=== PATIENT | female | born 1935 | race Caucasian/White ===

== ENCOUNTER 2017-07-04 11:38 | Inpatient (IN) | payer OTHER ==
[~2017-07-04] VITALS: Ht 170.2 cm; Wt 57.6 kg
[~2017-07-04 11:38] MED LIST: ACET325T14 PO; CALC1TAB59 PO; FOLI-17 PO; HYDR-3237 PO; LEVO100T5 PO; LOVA10TA PO
[2017-07-04] MEDS ORDERED: SODIUM CHLORIDE 0.9% 1,000 ML IV ONE (11:58)
[2017-07-04] MEDS ORDERED: SODIUM CHLORIDE FLUSH 10ML SYR IVF ONE (12:00)
[2017-07-04] MEDS ORDERED: SODIUM CHLORIDE 0.9% 1,000ML IVBOLUS ONE (12:00)
[2017-07-04 12:57] LABS: MEAN CORPUSCULAR HEMOGLOBIN 28.5 pg (27.0-34.8); MEAN CORPUSCULAR VOLUME 86.2 fL (80-100); PLATELET COUNT 266 x10^3/uL (130-400); RED BLOOD COUNT 4.32 x10^6/uL (3.82-5.3); RED CELL DISTRIBUTION WIDTH 13.6 % (9.6-15.2)
[2017-07-04 13:06] LABS: ALANINE AMINOTRANSFERASE 21 U/L (12-78); ALBUMIN 1.7 g/dL (3.4-5.0); ANION GAP 7 mmol/L (5-15); CALCIUM 7.9 mg/dL (8.5-10.1); CHLORIDE 109 mmol/L (98-107); CREATININE 1.27 mg/dL (0.55-1.02)
[2017-07-04 13:13] LABS: TROPONIN I < 0.015 ng/mL (0.000-0.045)
[2017-07-04 13:17] LABS: ALKALINE PHOSPHATASE 182 U/L (45-117); BILIRUBIN,TOTAL 0.3 mg/dL (0.2-1.0); TOTAL PROTEIN 5.9 g/dL (6.4-8.2)
[2017-07-04] MEDS ORDERED: CEFTRIAXONE PMX 1GM/50ML 50 ML ONE (13:27)
[2017-07-04] MEDS ORDERED: CEFTRIAXONE PMX 1GM/50ML 50 ML IVPB ONE (13:30)
[2017-07-04] MEDS ORDERED: LEVO88TA4 PO (13:33)
[2017-07-04] MEDS ORDERED: ALPR0.5T3 PO (13:34)
[2017-07-04 13:42] LABS: MD YES
[2017-07-04 13:44] LABS: BANDS%(MANUAL) 16 % (0-7); LYMPHS% (MANUAL) 1 % (22-44); MONOS% (MANUAL) 2 % (2-9); SEGS% (MANUAL) 81 % (42-75)
[2017-07-04 13:46] LABS: <PLATELET ESTIMATE> ADEQUATE; <PLT MORPHOLOGY> NORMAL PLT MORPH; TOXIC GRAN 1+
[2017-07-04 13:49] LABS: MICROSCOPIC INDICATED
[2017-07-04 14:43] LABS: CULTURE INDICATED? YES
[2017-07-04] MEDS ORDERED: HYDROcodone/APAP 5/325 TABLET ONE (15:12)
[2017-07-04] MEDS ORDERED: HYDROcodone/APAP 5/325 TABLET PO ONE (15:30)
[2017-07-04 17:09] VITALS: BP 111/67
[2017-07-04] MEDS ORDERED: SODIUM CHLORIDE 0.9% 1,000 ML IV SCH (17:55)
[2017-07-04] MEDS ORDERED: PHARMACY MAY ADJ FOR RENAL FX MC PRN (18:00)
[2017-07-04] MEDS ORDERED: GUAIFENESIN/DM 200-20MG, 10ML UDC PO PRN (18:00)
[2017-07-04] MEDS ORDERED: BISACODYL 10 MG SUPP PR PRN (18:00)
[2017-07-04] MEDS ORDERED: ACETAMINOPHEN 325 MG TABLET PO PRN (18:00)
[2017-07-04] MEDS: DOXYCYCLINE 100 MG in DEXTROSE 5% 250 ML IV SCH (19:16)
[2017-07-04 19:52] VITALS: BP 122/74
[2017-07-04] MEDS: LOVASTATIN 10 MG TABLET PO SCH (20:25)
[2017-07-04] MEDS: HEPARIN 5,000 UNITS/ML, 1ML INJ SCH (20:25)
[2017-07-05 01:07] VITALS: BP 122/66
[2017-07-05] MEDS: NS + 20MEQ KCL 1,000 ML IV SCH ×2 (01:39→15:21)
[2017-07-05 05:11] LABS: CHLORIDE 112 mmol/L (98-107)
[2017-07-05 05:17] LABS: MEAN CORPUSCULAR HGB CONC 32.6 g/dL (32.4-35.8); MEAN CORPUSCULAR VOLUME 85.9 fL (80-100); MEAN PLATELET VOLUME 7.2 fL (7.4-10.4); PLATELET COUNT 222 x10^3/uL (130-400); RED BLOOD COUNT 3.87 x10^6/uL (3.82-5.3); RED CELL DISTRIBUTION WIDTH 13.9 % (9.6-15.2)
[2017-07-05 05:26] LABS: ALANINE AMINOTRANSFERASE 16 U/L (12-78); ALBUMIN 1.4 g/dL (3.4-5.0); ALKALINE PHOSPHATASE 148 U/L (45-117); ANION GAP 6 mmol/L (5-15); BILIRUBIN,TOTAL 0.3 mg/dL (0.2-1.0); CALCIUM 7.5 mg/dL (8.5-10.1); CREATININE 0.97 mg/dL (0.55-1.02); TOTAL PROTEIN 5.1 g/dL (6.4-8.2)
[2017-07-05] MEDS: LEVOTHYROXINE 88 MCG TABLET PO SCH (05:38)
[2017-07-05 05:57] LABS: MD YES
[2017-07-05 06:02] LABS: BAND#(MANUAL) 2.52 x10^3/uL; BANDS%(MANUAL) 12 % (0-7); LYMPH#(MANUAL) 1.89 x10^3/uL (1-3.4); LYMPHS% (MANUAL) 9 % (22-44); MONOS#(MANUAL) 0.63 x10^3/uL (0.3-2.7); MONOS% (MANUAL) 3 % (2-9); MYELOCYTES# (MANUAL) 0.21 x10^3/uL (0-0); MYELOCYTES% (MANUAL) 1 % (0-0); SEG#(MANUAL) 15.75 x10^3/uL (1.8-6.8); SEGS% (MANUAL) 75 % (42-75)
[2017-07-05 06:05] LABS: <PLATELET ESTIMATE> ADEQUATE; <PLT MORPHOLOGY> NORMAL PLT MORPH; <RBC MORPHOLOGY> NORMAL; TOXIC GRAN 1+
[2017-07-05] MEDS: DOXYCYCLINE 100 MG in DEXTROSE 5% 250 ML IV SCH (06:34)
[2017-07-05 06:45] VITALS: BP 134/78
[2017-07-05] MEDS: HEPARIN 5,000 UNITS/ML, 1ML INJ SCH ×2 (09:57→20:44)
[2017-07-05] MEDS ORDERED: MORPHINE SULFATE 4 MG/ML, 1ML IVPush PRN (13:30)
[2017-07-05] MEDS: HYDROcodone/APAP 5/325 TABLET PO PRN ×2 (14:03→19:10)
[2017-07-05] MEDS: CEFTRIAXONE PMX 1GM/50ML 50 ML IVPB SCH (14:04)
[2017-07-05 15:10] VITALS: BP 137/77
[2017-07-05] MEDS ORDERED: POTASSIUM CHLORIDE 20 MEQ in SODIUM CHLORIDE 0.9% 1,000 ML IV SCH (17:55)
[2017-07-05 19:03] VITALS: BP 126/75
[2017-07-05] MEDS: LOVASTATIN 10 MG TABLET PO SCH (20:44)
[2017-07-05] MEDS: DOXYCYCLINE 100MG TABLET PO SCH (20:44)
[2017-07-06 00:39] VITALS: BP 121/69
[2017-07-06] MEDS: NS + 20MEQ KCL 1,000 ML IV SCH (01:18)
[2017-07-06] MEDS: HYDROcodone/APAP 5/325 TABLET PO PRN ×4 (04:20→21:39)
[2017-07-06 05:40] LABS: MEAN CORPUSCULAR HEMOGLOBIN 28.3 pg (27.0-34.8); MEAN CORPUSCULAR HGB CONC 32.9 g/dL (32.4-35.8); MEAN PLATELET VOLUME 7.6 fL (7.4-10.4); PLATELET COUNT 233 x10^3/uL (130-400); RED BLOOD COUNT 3.76 x10^6/uL (3.82-5.3); RED CELL DISTRIBUTION WIDTH 14.3 % (9.6-15.2)
[2017-07-06 05:41] LABS: CHLORIDE 114 mmol/L (98-107)
[2017-07-06 05:46] LABS: ANION GAP 6 mmol/L (5-15); CALCIUM 7.5 mg/dL (8.5-10.1); CREATININE 0.93 mg/dL (0.55-1.02)
[2017-07-06 05:59] LABS: MD YES
[2017-07-06 06:00] LABS: BAND#(MANUAL) 0.74 x10^3/uL; BANDS%(MANUAL) 4 % (0-7); LYMPH#(MANUAL) 0.93 x10^3/uL (1-3.4); LYMPHS% (MANUAL) 5 % (22-44); MONOS#(MANUAL) 0.19 x10^3/uL (0.3-2.7); MONOS% (MANUAL) 1 % (2-9); SEG#(MANUAL) 16.74 x10^3/uL (1.8-6.8); SEGS% (MANUAL) 90 % (42-75)
[2017-07-06 06:01] LABS: <PLATELET ESTIMATE> ADEQUATE; <PLT MORPHOLOGY> NORMAL PLT MORPH; <RBC MORPHOLOGY> NORMAL; TOXIC GRAN 1+
[2017-07-06] MEDS: LEVOTHYROXINE 88 MCG TABLET PO SCH (06:10)
[2017-07-06 07:11] VITALS: BP 132/77
[2017-07-06] MEDS ORDERED: VANCOMYCIN PER PHARMACY MC PRN (08:00)
[2017-07-06] MEDS ORDERED: PHARMACOKINETIC MONITORING MC PRN (08:00)
[2017-07-06] MEDS: SODIUM CHLORIDE 0.45% 1,000 ML IV SCH ×2 (08:06→20:28)
[2017-07-06] MEDS: DOXYCYCLINE 100MG TABLET PO SCH ×2 (08:06→20:28)
[2017-07-06] MEDS: SENNA/DOCUSATE TABLET PO PRN (08:06)
[2017-07-06] MEDS: HEPARIN 5,000 UNITS/ML, 1ML INJ SCH ×2 (08:06→20:29)
[2017-07-06 08:30] LABS: MEAN CORPUSCULAR HEMOGLOBIN 27.7 pg (27.0-34.8); MEAN CORPUSCULAR HGB CONC 32.1 g/dL (32.4-35.8); MEAN CORPUSCULAR VOLUME 86.3 fL (80-100); MEAN PLATELET VOLUME 7.4 fL (7.4-10.4); PLATELET COUNT 248 x10^3/uL (130-400); RED BLOOD COUNT 4.07 x10^6/uL (3.82-5.3); RED CELL DISTRIBUTION WIDTH 13.9 % (9.6-15.2)
[2017-07-06 08:51] LABS: MD YES
[2017-07-06 08:55] LABS: EOS#(MANUAL) 0.18 x10^3/uL (0.0-0.4); EOS% (MANUAL) 1 % (1-7); LYMPH#(MANUAL) 1.06 x10^3/uL (1-3.4); LYMPHS% (MANUAL) 6 % (22-44); SEG#(MANUAL) 16.46 x10^3/uL (1.8-6.8); SEGS% (MANUAL) 93 % (42-75)
[2017-07-06 08:59] LABS: POLYCHROMASIA 1+; TOXIC GRAN 1+
[2017-07-06 09:00] LABS: <PLATELET ESTIMATE> ADEQUATE; <PLT MORPHOLOGY> NORMAL PLT MORPH
[2017-07-06] MEDS: VANCOMYCIN PMX 1GM/200ML 200 ML IV SCH (09:19)
[2017-07-06] MEDS: ONDANSETRON 2MG/ML, 2ML IVPB PRN (10:54)
[2017-07-06 12:50] VITALS: BP 145/82
[2017-07-06] MEDS: CEFTRIAXONE PMX 1GM/50ML 50 ML IVPB SCH (13:19)
[2017-07-06 18:46] VITALS: BP 144/76
[2017-07-06] MEDS: LOVASTATIN 10 MG TABLET PO SCH (20:28)
[2017-07-07 01:00] VITALS: BP 151/71
[2017-07-07 04:48] LABS: BASOPHILS # (AUTO) 0.02 x10^3/uL (0-0.1); BASOPHILS % (AUTO) 0 % (0-1); EOSINOPHILS # (AUTO) 0.19 x10^3/uL (0-0.4); EOSINOPHILS % (AUTO) 1 % (1-7); LYMPHOCYTES # (AUTO) 1.07 x10^3/uL (1-3.4); LYMPHOCYTES % (AUTO) 8 % (22-44); MD NO; MEAN CORPUSCULAR HEMOGLOBIN 28.4 pg (27.0-34.8); MEAN CORPUSCULAR HGB CONC 32.8 g/dL (32.4-35.8); MEAN CORPUSCULAR VOLUME 86.4 fL (80-100); MEAN PLATELET VOLUME 7.3 fL (7.4-10.4); MONOCYTES # (AUTO) 0.53 x10^3/uL (0.2-0.8); MONOCYTES % (AUTO) 4 % (2-9); NEUTROPHILS # (AUTO) 12.38 x10^3/uL (1.8-6.8); NEUTROPHILS % (AUTO) 87 % (42-75); PLATELET COUNT 265 x10^3/uL (130-400); RED BLOOD COUNT 3.79 x10^6/uL (3.82-5.3); RED CELL DISTRIBUTION WIDTH 13.7 % (9.6-15.2)
[2017-07-07 04:59] LABS: ALBUMIN 1.3 g/dL (3.4-5.0); ANION GAP 4 mmol/L (5-15); CALCIUM 7.5 mg/dL (8.5-10.1); CHLORIDE 111 mmol/L (98-107); CREATININE 0.91 mg/dL (0.55-1.02)
[2017-07-07] MEDS: LEVOTHYROXINE 88 MCG TABLET PO SCH (06:17)
[2017-07-07] MEDS: SODIUM CHLORIDE 0.45% 1,000 ML IV SCH (06:17)
[2017-07-07 06:40] VITALS: BP 155/81
[2017-07-07] MEDS ORDERED: MAGNESIUM SULFATE PMX 4GM/100M 100 ML IV ONE (09:00)
[2017-07-07] MEDS: VANCOMYCIN PMX 1GM/200ML 200 ML IV SCH (09:24)
[2017-07-07] MEDS: HEPARIN 5,000 UNITS/ML, 1ML INJ SCH (09:24)
[2017-07-07] MEDS: DOXYCYCLINE 100MG TABLET PO SCH ×2 (09:24→21:01)
[2017-07-07] MEDS: HYDROcodone/APAP 5/325 TABLET PO PRN ×2 (09:24→21:01)
[2017-07-07] MEDS: ONDANSETRON 2MG/ML, 2ML IVPB PRN (10:30)
[2017-07-07 12:10] VITALS: BP 147/80
[2017-07-07] MEDS: ENOXAPARIN 40 MG/0.4 ML SQ SCH (14:04)
[2017-07-07] MEDS: CEFTRIAXONE PMX 1GM/50ML 50 ML IVPB SCH (15:20)
[2017-07-07] MEDS: SENNA/DOCUSATE TABLET PO PRN (15:20)
[2017-07-07 18:52] VITALS: BP 150/73
[2017-07-07] MEDS: LOVASTATIN 10 MG TABLET PO SCH (21:01)
[2017-07-08 01:08] VITALS: BP 145/73
[2017-07-08] MEDS: LEVOTHYROXINE 88 MCG TABLET PO SCH (06:16)
[2017-07-08 06:48] VITALS: BP 139/71
[2017-07-08] MEDS: DOXYCYCLINE 100MG TABLET PO SCH ×2 (09:06→21:07)
[2017-07-08] MEDS: HYDROcodone/APAP 5/325 TABLET PO PRN ×2 (09:08→21:08)
[2017-07-08 09:14] LABS: ALBUMIN 1.4 g/dL (3.4-5.0); ANION GAP 5 mmol/L (5-15); CALCIUM 7.5 mg/dL (8.5-10.1); CHLORIDE 109 mmol/L (98-107); CREATININE 0.88 mg/dL (0.55-1.02)
[2017-07-08 09:20] LABS: BASOPHILS % (AUTO) 0 % (0-1); EOSINOPHILS # (AUTO) 0.16 x10^3/uL (0-0.4); EOSINOPHILS % (AUTO) 2 % (1-7); LYMPHOCYTES # (AUTO) 1.04 x10^3/uL (1-3.4); LYMPHOCYTES % (AUTO) 10 % (22-44); MD SCAN; MEAN CORPUSCULAR HEMOGLOBIN 27.5 pg (27.0-34.8); MEAN CORPUSCULAR HGB CONC 32.1 g/dL (32.4-35.8); MEAN CORPUSCULAR VOLUME 85.7 fL (80-100); MEAN PLATELET VOLUME 6.9 fL (7.4-10.4); MONOCYTES # (AUTO) 0.36 x10^3/uL (0.2-0.8); MONOCYTES % (AUTO) 4 % (2-9); NEUTROPHILS # (AUTO) 8.83 x10^3/uL (1.8-6.8); NEUTROPHILS % (AUTO) 85 % (42-75); PLATELET COUNT 339 x10^3/uL (130-400); RED BLOOD COUNT 3.95 x10^6/uL (3.82-5.3); RED CELL DISTRIBUTION WIDTH 13.5 % (9.6-15.2)
[2017-07-08 12:03] VITALS: BP 130/70
[2017-07-08] MEDS: CEFTRIAXONE PMX 1GM/50ML 50 ML IVPB SCH (13:39)
[2017-07-08] MEDS: ENOXAPARIN 40 MG/0.4 ML SQ SCH (13:39)
[2017-07-08 19:40] VITALS: BP 149/83
[2017-07-08] MEDS: SENNA/DOCUSATE TABLET PO PRN (21:07)
[2017-07-08] MEDS: TEMAZEPAM 15 MG CAPSULE PO PRN (21:08)
[2017-07-08] MEDS: LOVASTATIN 10 MG TABLET PO SCH (21:08)
[2017-07-09 01:06] VITALS: BP 136/78
[2017-07-09] MEDS: LEVOTHYROXINE 88 MCG TABLET PO SCH (06:10)
[2017-07-09] MEDS: HYDROcodone/APAP 5/325 TABLET PO PRN (06:10)
[2017-07-09 06:35] LABS: BASOPHILS # (AUTO) 0.03 x10^3/uL (0-0.1); BASOPHILS % (AUTO) 0 % (0-1); EOSINOPHILS # (AUTO) 0.12 x10^3/uL (0-0.4); EOSINOPHILS % (AUTO) 1 % (1-7); LYMPHOCYTES # (AUTO) 1.15 x10^3/uL (1-3.4); LYMPHOCYTES % (AUTO) 10 % (22-44); MD NO; MEAN CORPUSCULAR HEMOGLOBIN 27.4 pg (27.0-34.8); MEAN CORPUSCULAR HGB CONC 32.3 g/dL (32.4-35.8); MEAN CORPUSCULAR VOLUME 84.9 fL (80-100); MEAN PLATELET VOLUME 7.1 fL (7.4-10.4); MONOCYTES # (AUTO) 0.53 x10^3/uL (0.2-0.8); MONOCYTES % (AUTO) 5 % (2-9); NEUTROPHILS % (AUTO) 84 % (42-75); PLATELET COUNT 390 x10^3/uL (130-400); RED BLOOD COUNT 3.84 x10^6/uL (3.82-5.3); RED CELL DISTRIBUTION WIDTH 13.2 % (9.6-15.2)
[2017-07-09 06:47] LABS: ALBUMIN 1.4 g/dL (3.4-5.0); ANION GAP 5 mmol/L (5-15); CALCIUM 7.5 mg/dL (8.5-10.1); CHLORIDE 106 mmol/L (98-107); CREATININE 0.75 mg/dL (0.55-1.02)
[2017-07-09 07:26] VITALS: BP 135/80
[2017-07-09] MEDS: DOXYCYCLINE 100MG TABLET PO SCH ×2 (10:10→20:00)
[2017-07-09] MEDS: CEFTRIAXONE PMX 1GM/50ML 50 ML IVPB SCH (13:28)
[2017-07-09] MEDS: ENOXAPARIN 40 MG/0.4 ML SQ SCH (13:28)
[2017-07-09] MEDS ORDERED: POTASSIUM CHLORIDE 20 MEQ TAB.ER.PRT PO ONE (13:30)
[2017-07-09] MEDS ORDERED: FUROSEMIDE 20 MG/2 ML IV ONE (13:30)
[2017-07-09 13:55] VITALS: BP 146/81
[2017-07-09 19:12] VITALS: BP 124/72
[2017-07-09] MEDS ORDERED: HYDROcodone/APAP 5/325 TABLET PO ONE (19:30)
[2017-07-09] MEDS: ONDANSETRON 2MG/ML, 2ML IVPB PRN (19:39)
[2017-07-09] MEDS: TEMAZEPAM 15 MG CAPSULE PO PRN (19:39)
[2017-07-09] MEDS: LOVASTATIN 10 MG TABLET PO SCH (20:00)
[2017-07-10 01:06] VITALS: BP 116/66
[2017-07-10] MEDS: LEVOTHYROXINE 88 MCG TABLET PO SCH (05:51)
[2017-07-10] MEDS ORDERED: CEFT1FRO2 IV (08:24)
[2017-07-10] MEDS: DOXYCYCLINE 100MG TABLET PO SCH (08:40)
[2017-07-10 09:31] VITALS: BP 99/63
[2017-07-10] MEDS ORDERED: PNEUMOCOCCAL VACC.PER PHARMACY IM ONE ×2 (12:00→15:00)
[2017-07-10] MEDS: ENOXAPARIN 40 MG/0.4 ML SQ SCH (13:55)
[2017-07-10] MEDS: CEFTRIAXONE PMX 1GM/50ML 50 ML IVPB SCH (13:55)
== END 2017-07-10 15:00 | DRG 871 ==
LOC: ED 11:51 → EDIP 13:56 → 3NW 16:30
PROVIDERS: ADMIT Internal Medicine; ATTEND Internal Medicine
PROC: 02HV33Z Insertion of Infusion Device into Superior Vena Cava, Percutaneous Approach (ICD-10-PCS; principal; 2017-07-08)
PROC: B548ZZA Ultrasonography of Superior Vena Cava, Guidance (ICD-10-PCS; 2017-07-08)
PROC: B5181ZA Fluoroscopy of Superior Vena Cava using Low Osmolar Contrast, Guidance (ICD-10-PCS; 2017-07-08)
DX: A40.3 Sepsis due to Streptococcus pneumoniae (principal); N17.0 Acute kidney failure with tubular necrosis; E43 Unspecified severe protein-calorie malnutrition; J15.9 Unspecified bacterial pneumonia; D64.9 Anemia, unspecified; E86.0 Dehydration; S32.599A Other specified fracture of unspecified pubis, initial encounter for closed fracture; J98.11 Atelectasis; Z68.1 Body mass index [BMI] 19.9 or less, adult; N30.90 Cystitis, unspecified without hematuria; W01.0XXA Fall on same level from slipping, tripping and stumbling without subsequent striking against object, initial encounter; E78.00 Pure hypercholesterolemia, unspecified; E83.42 Hypomagnesemia; M43.16 Spondylolisthesis, lumbar region; M51.36 Other intervertebral disc degeneration, lumbar region; M81.0 Age-related osteoporosis without current pathological fracture; R29.6 Repeated falls; Y93.89 Activity, other specified; Y92.89 Other specified places as the place of occurrence of the external cause; Y99.8 Other external cause status; Z98.82 Breast implant status; Z90.12 Acquired absence of left breast and nipple; Z90.49 Acquired absence of other specified parts of digestive tract; Z87.891 Personal history of nicotine dependence; M47.817 Spondylosis without myelopathy or radiculopathy, lumbosacral region; G89.29 Other chronic pain; E89.0 Postprocedural hypothyroidism; Z23 Encounter for immunization
CPT/HCPCS: 36415; 36569; 71045; 72110; 72220; 76937; 77001; 80048; 80053; 81001; 82040; 83605; 83735; 84100; 84145; 84439; 84443; 84484; 85025; 87040; 87077; 87086; 87181; 93005; 93306; 96361; 96365; J0696; J1644; J1650; J2405; J3370; J3480; J7060; C1751; J1940; J3475; J7030

== ENCOUNTER → 2018-10-06 | Outpatient (CLI) | payer MEDICARE ==
[~2018-10-06] MED LIST changes: +ALPR0.5T3 PO; +CEFT1FRO2 IV; +LEVO88TA4 PO
== END | disposition home or self-care (01) ==
LOC: CFH 12:51
PROVIDERS: ATTEND Physician Assistant
DX: R31.9 Hematuria, unspecified (principal)
CPT/HCPCS: 82565

== ENCOUNTER 2018-10-20 13:20 | Outpatient (CLI) | payer MEDICARE ==
[2018-10-20] MEDS ORDERED: OMNIPAQUE 350 MG/ML, 100ML BOTTLE ONE (15:01)
== END 2018-10-20 23:59 | disposition home or self-care (01) ==
LOC: CFH 13:20
PROVIDERS: ATTEND Physician Assistant
DX: N28.1 Cyst of kidney, acquired (principal); N13.30 Unspecified hydronephrosis; I87.8 Other specified disorders of veins; D25.9 Leiomyoma of uterus, unspecified; K76.89 Other specified diseases of liver; J98.4 Other disorders of lung; M47.816 Spondylosis without myelopathy or radiculopathy, lumbar region
CPT/HCPCS: 74178; 82565; Q9967

== ENCOUNTER → 2019-08-16 | Outpatient (CLI) | payer MEDICARE | END | disposition home or self-care (01) | LOC: CFH 14:02 | PROVIDERS: ATTEND Family Medicine | DX: N63.11 Unspecified lump in the right breast, upper outer quadrant (principal) | CPT/HCPCS: 76642; 77066 ==

== ENCOUNTER → 2019-08-26 | Outpatient (CLI) | payer MEDICARE ==
[~2019-08-26] MED LIST changes: +LIDOCAINE 1%, 20ML ONE; +LIDOCAINE 1%-EPI 1:100K, 20ML ONE; +SODIUM BICARBONATE 4.2%, 5ML ONE
== END | disposition home or self-care (01) ==
LOC: CFH 08:40
PROVIDERS: ATTEND Family Medicine
DX: N63.11 Unspecified lump in the right breast, upper outer quadrant (principal); C50.411 Malignant neoplasm of upper-outer quadrant of right female breast
CPT/HCPCS: 19083; 77065; 88305; J3490; 19285; 88341; 88342; 88360

== ENCOUNTER 2019-10-05 09:33 | Outpatient (CLI) | payer MEDICARE ==
[~2019-10-05 09:33] MED LIST changes: -LIDOCAINE 1%, 20ML ONE; -LIDOCAINE 1%-EPI 1:100K, 20ML ONE; -SODIUM BICARBONATE 4.2%, 5ML ONE
== END 2019-10-05 23:59 | disposition home or self-care (01) ==
LOC: STAR 09:33
PROVIDERS: ATTEND Surgery
DX: Z01.818 Encounter for other preprocedural examination (principal); C50.411 Malignant neoplasm of upper-outer quadrant of right female breast; I45.2 Bifascicular block
CPT/HCPCS: 93005

== ENCOUNTER 2019-10-25 07:38 | Observation (INO) | payer MEDICARE ==
[~2019-10-25] VITALS: Ht 167.6 cm; Wt 48.0 kg
[~2019-10-25 07:38] MED LIST changes: +BUPIVACAINE/PF-EPI 0.5% 1:200K ONE; +ISOSULFAN BLUE 10 MG/ML, 5ML IV ONE
[2019-10-25] MEDS ORDERED: OXYcodone 5 MG/5 ML ORAL.SOL UDC PO PRN (09:00)
[2019-10-25] MEDS ORDERED: HALOPERIDOL 5 MG/ML IV PRN (09:00)
[2019-10-25] MEDS ORDERED: MEPERIDINE/PF 25MG/0.5ML IVPush PRN (09:00)
[2019-10-25] MEDS ORDERED: FENTANYL PF 100 MCG/2ML IV PRN (09:00)
[2019-10-25] MEDS ORDERED: PROMETHAZINE 25 MG/ML, 1ML IVPush PRN (09:00)
[2019-10-25] MEDS ORDERED: HYDROmorphone 1 MG/ML, 1ML INJ IVPush PRN (09:00)
[2019-10-25] MEDS ORDERED: CHLORHEXIDINE 15 ML UDC MM ONE (09:00)
[2019-10-25] MEDS ORDERED: hydrALAzine 20 MG/ML, 1ML IV PRN (09:00)
[2019-10-25] MEDS ORDERED: LABETALOL 5MG/ML, 20ML IV PRN (09:00)
[2019-10-25] MEDS ORDERED: LACTATED RINGERS 1,000 ML IV SCH ×2 (09:00→13:00)
[2019-10-25] MEDS ORDERED: FENTANYL PF 100 MCG/2ML ONE ×2 (09:14→10:13)
[2019-10-25] MEDS ORDERED: DEXAMETHASONE 4 MG/ML, 1ML ONE (10:32)
[2019-10-25] MEDS ORDERED: NEOSTIGMINE 1 MG/ML, 10ML ONE (10:32)
[2019-10-25] MEDS ORDERED: ROCURONIUM 10MG/ML,5ML ONE ×2 (10:32)
[2019-10-25] MEDS ORDERED: CEFAZOLIN 1,000 MG ONE (10:32)
[2019-10-25] MEDS ORDERED: PROPOFOL 10 MG/ML, 20ML ONE (10:32)
[2019-10-25] MEDS ORDERED: ONDANSETRON 2MG/ML, 2ML ONE (10:32)
[2019-10-25] MEDS ORDERED: SUCCINYLCHOLINE 20 MG/ML, 10ML ONE (10:32)
[2019-10-25] MEDS ORDERED: GLYCOPYRROLATE 0.2MG/1ML, 5ML ONE (10:32)
[2019-10-25 12:25] VITALS: BP 154/84
[2019-10-25] MEDS ORDERED: HYDROcodone/APAP 5/325 TABLET PO PRN (13:00)
[2019-10-25] MEDS ORDERED: ONDANSETRON 2MG/ML, 2ML IVPush PRN (13:00)
[2019-10-25] MEDS ORDERED: MORPHINE SULFATE 4 MG/ML, 1ML IVPush PRN (13:00)
[2019-10-25 18:56] VITALS: BP 145/81
[2019-10-26] VITALS: BP 126/71
[2019-10-26 00:17] VITALS: BP 161/75
[2019-10-26 05:36] VITALS: BP 109/85
[2019-10-26] MEDS ORDERED: LEVOTHYROXINE 100 MCG TABLET PO SCH (06:00)
[2019-10-26 07:51] VITALS: BP 120/78
[2019-10-26] MEDS ORDERED: LOVASTATIN 10 MG TABLET PO SCH (09:00)
[2019-10-26] MEDS ORDERED: HYDR-3652 PO (09:10)
[2019-10-26 13:50] VITALS: BP 109/66
== END 2019-10-26 14:30 | disposition home health service (06) ==
LOC: OUT 07:38 → 4NE 12:28 → OUT 12:56 → INTOOBSV 13:07 → OBSVTOIN 13:07 → 4NE 23:45
PROVIDERS: ADMIT Surgery; ATTEND Surgery
DX: C50.411 Malignant neoplasm of upper-outer quadrant of right female breast (principal); Z20.828 Contact with and (suspected) exposure to other viral communicable diseases; M19.90 Unspecified osteoarthritis, unspecified site; I10 Essential (primary) hypertension; E03.9 Hypothyroidism, unspecified; E78.00 Pure hypercholesterolemia, unspecified; M81.0 Age-related osteoporosis without current pathological fracture; Z87.891 Personal history of nicotine dependence; Z90.11 Acquired absence of right breast and nipple
CPT/HCPCS: 19303; 36415; 38525; 38792; 87635; 88307; 88331; 88360; 88361; 88374; A9541; C1729; G0378; J0330; J0690; J1100; J2405; J2550; J2704; J3010; J7120; J2710

== ENCOUNTER 2019-10-25 08:00 | Outpatient (CLI) | payer MEDICARE ==
[~2019-10-25 08:00] MED LIST changes: -BUPIVACAINE/PF-EPI 0.5% 1:200K ONE; -ISOSULFAN BLUE 10 MG/ML, 5ML IV ONE
[2019-10-25] MEDS ORDERED: PROMETHAZINE 25 MG/ML, 1ML ONE (11:46)
[2019-10-25] MEDS ORDERED: FENTANYL PF 100 MCG/2ML ONE (11:56)
[2019-10-26] MEDS ORDERED: HYDR-3652 PO (09:10)
== END 2019-10-25 23:59 | disposition home or self-care (01) ==
LOC: RAD 08:00
PROVIDERS: ATTEND Surgery
DX: C50.411 Malignant neoplasm of upper-outer quadrant of right female breast (principal); M19.90 Unspecified osteoarthritis, unspecified site; E78.00 Pure hypercholesterolemia, unspecified; E03.9 Hypothyroidism, unspecified; Z79.899 Other long term (current) drug therapy
CPT/HCPCS: 38792; 88361; A9541